=== PATIENT | male | born 1945 | race Hispanic/Latino ===

== ENCOUNTER → 2022-11-11 | Outpatient (CLI) | payer MEDICARE ==
[2022-11-11 16:16] LABS: BASOPHILS % (AUTO) 0.4 % (0.0-5.0); EOSINOPHILS % (AUTO) 1.2 % (0.0-8.0); HEMATOCRIT 36.2 % (42-54); LYMPHOCYTES % (AUTO) 16.7 % (21.0-51.0); MEAN CORPUSCULAR HEMOGLOBIN 28.8 pg (27.0-33.0); MEAN CORPUSCULAR VOLUME 89.8 fL (79-99); MONOCYTES % (AUTO) 7.6 % (3.0-13.0); NEUTROPHILS % (AUTO) 73.8 % (40.0-77.0); PLATELET COUNT (AUTO) 376 K/uL (130-400); RED BLOOD CELL COUNT(AUTO) 4.03 MIL/uL (4.50-6.20); RED CELL DISTRIBUTION WIDTH 14.9 % (11.0-15.5); WHITE BLOOD COUNT (AUTO) 9.2 K/uL (4.8-10.8)
[2022-11-11 16:41] LABS: CREATININE 1.7 mg/dL (0.5-1.5); POTASSIUM 4.6 mmol/L (3.5-5.1); THYROID STIMULATING HORMONE 4.54 uIU/mL (0.36-3.74)
== END | disposition home or self-care (01) ==
LOC: LAB 15:23
PROVIDERS: ATTEND Internal Medicine Cardiovascular Disease
DX: I10 Essential (primary) hypertension (principal); I25.10 Atherosclerotic heart disease of native coronary artery without angina pectoris; E78.5 Hyperlipidemia, unspecified; Z85.46 Personal history of malignant neoplasm of prostate
CPT/HCPCS: 36415; 80048; 84153; 84154; 84443; 85025

== ENCOUNTER → 2023-01-02 | Outpatient (CLI) | payer MEDICARE ==
[2023-01-02 12:04] LABS: CREATININE 1.6 mg/dL (0.5-1.5); MAGNESIUM 2.1 mg/dL (1.80-2.40); POTASSIUM 4.3 mmol/L (3.5-5.1)
== END | disposition home or self-care (01) ==
LOC: LAB 10:23
PROVIDERS: ATTEND Internal Medicine Cardiovascular Disease
DX: I25.10 Atherosclerotic heart disease of native coronary artery without angina pectoris (principal)
CPT/HCPCS: 36415; 80048; 83735

== ENCOUNTER 2024-01-29 06:47 | Observation (INO) | payer OTHER ==
[2024-01-28 13:50] LABS: BASOPHILS # (AUTO) 0.04 K/uL (0.00-0.20); BASOPHILS % (AUTO) 0.5 % (0.0-5.0); EOSINOPHILS # (AUTO) 0.08 K/uL (0.00-0.70); HEMATOCRIT 41.6 % (42-54); IMMATURE GRANULOCYTE ABSOLUTE 0.04 K/uL (0-1); LYMPHOCYTES # (AUTO) 1.4 K/uL (1.0-4.8); LYMPHOCYTES % (AUTO) 17.2 % (21.0-51.0); MEAN CORPUSCULAR HEMOGLOBIN 30.4 pg (27.0-33.0); MEAN CORPUSCULAR HGB CONC 32.9 g/dL (32.0-36.0); MEAN CORPUSCULAR VOLUME 92.4 fL (79-99); MONOCYTES # (AUTO) 0.7 K/uL (0.1-1.0); MONOCYTES % (AUTO) 8.1 % (3.0-13.0); NEUTROPHILS % (AUTO) 72.7 % (40.0-77.0); PLATELET COUNT (AUTO) 339 K/uL (130-400); RED CELL DISTRIBUTION WIDTH 13.2 % (11.0-15.5); WHITE BLOOD COUNT (AUTO) 8.2 K/uL (4.8-10.8)
[2024-01-28 14:00] LABS: CREATININE 1.6 mg/dL (0.5-1.3)
[2024-01-28 14:08] VITALS: BP 129/74; PULSE 70; RESP 17; TEMP 98
[~2024-01-29] VITALS: Ht 180.3 cm; Wt 85.9 kg
[2024-01-29] VITALS (18 sets, daily range): BP systolic 100–151; BP diastolic 53–93; PULSE 69–97; RESP 15–19; TEMP 97.2–97.7
[2024-01-29] MEDS: EPINEPHrine PF 1MG (1:1,000) 1 MG/ML AMP MISC ONE
[~2024-01-29 06:47] MED LIST: ASPI-1197 PO; ATOR10 PO; BICA50TA7 PO; DOCU100T PO; DULO60CA64 PO; EZET10TA48 PO; FERR325T22 PO; GABA-529 PO; ISOS10TA8 PO; MULT1CAP17 PO; RAMI2.5C57 PO; TAMS-1 PO; VITA1CAP85 PO
[2024-01-29] MEDS: LACTATED RINGERS 1000ML 1,000 ML IV ONE (07:40)
[2024-01-29] MEDS: ceFAZolin SODIUM 2 GM VIAL ONE (07:40)
[2024-01-29] MEDS ORDERED: rocuRONium bROMide 10MG/1ML 5ML VL ONE (13:32)
[2024-01-29] MEDS ORDERED: LIDOCAINE PF 100MG/5ML (2%) SYRINGE 5ML ONE (13:32)
[2024-01-29] MEDS ORDERED: proPOFol 10 MG/ML 20ML VIAL IV ONE (13:32)
[2024-01-29] MEDS ORDERED: FENTanyl CITRate PF 50 MCG/1 ML 2ML VIAL ONE ×2 (13:33→20:40)
[2024-01-29] MEDS ORDERED: EPINEPHrine PF 1MG (1:1,000) 1 MG/ML AMP ONE (13:41)
[2024-01-29] MEDS ORDERED: MIDAZOLAM HCL 1 MG/ML 2ML VIAL ONE (17:40)
[2024-01-29] MEDS ORDERED: ONDANSETRON 4MG INJ ONE (17:41)
[2024-01-29] MEDS ORDERED: dexaMETHasone SOD PHOSPHATE 10MG/ML 1ML VIAL ONE (17:53)
[2024-01-29] MEDS ORDERED: ePHEDrine SULFate 50 MG/ML AMPULE ONE (18:05)
[2024-01-29] MEDS ORDERED: PHENYLEPHRINE HCL 10 MG/ML 1ML VIAL IV ONE (18:32)
[2024-01-29] MEDS ORDERED: NEOSTIGMINE METHYLSULFATE 1MG/ML IV ONE (20:38)
[2024-01-29] MEDS ORDERED: GLYCOPYRROLATE 0.2 MG/ML 5 ML VIAL ONE (20:38)
[2024-01-29] MEDS ORDERED: ceFAZolin SODIUM 1 GM VIAL IVPB SCH (21:00)
[2024-01-29] MEDS ORDERED: HYDR-4060 PO (21:11)
[2024-01-29] MEDS ORDERED: IBUP-2077 PO (21:11)
[2024-01-29] MEDS: acetaMINOPHEN 1,000 MG/100 ML VIAL IV ONE (21:14)
[2024-01-29] MEDS: 0.9%NACL 1000ML 1,000 ML IV SCH (22:36)
[2024-01-29] MEDS: ketOROlac 15MG/ML VIAL (15MG/ML) IV PRN (23:25)
[2024-01-30] VITALS (8 sets, daily range): BP systolic 126–150; BP diastolic 62–94; PULSE 69–86; RESP 18; TEMP 97.7–98.7; O2SAT 100
[2024-01-30] MEDS: ceFAZolin SODIUM 2 GM VIAL IVPB SCH (02:15)
[2024-01-30] MEDS ORDERED: ISOSORBIDE MONONITRATE 30 MG PO SCH (09:00)
[2024-01-30] MEDS ORDERED: NON-FORMULARY MEDICATION 1 EACH (Ramipril 2.5 MG) PO SCH (09:00)
[2024-01-30] MEDS: HYDROcodone/APAP 5/325 1 TAB TABLET PO PRN (09:58)
[2024-01-30] MEDS: EZETIMIBE 10 MG TAB PO SCH (09:58)
[2024-01-30] MEDS: atorVAStatin 20 MG TABLET PO SCH (09:59)
[2024-01-30] MEDS: LISINOPRIL 5 MG TABLET PO SCH (09:59)
[2024-01-30] MEDS: polyETHYLene GLYCol 3350 17 GM POWD.PACK PO SCH (09:59)
[2024-01-30] MEDS: GABAPENTIN 300 MG CAPSULE PO SCH (09:59)
[2024-01-30] MEDS: ISOSORBIDE MONO 30MG SR TAB PO SCH (09:59)
[2024-01-30] MEDS: ASPIRIN 81MG CHEW TAB PO SCH (10:00)
[2024-01-30] MEDS: PSYLLIUM SEED 1 EACH PACKET PO SCH (13:14)
[2024-01-30] MEDS ORDERED: NON-FORMULARY MEDICATION 1 EACH (Duloxetine HCl 60 MG) PO SCH (21:00)
[2024-01-30] MEDS ORDERED: tamSULOsin HCL 0.4 MG CAP.ER.24H PO SCH (21:00)
[2024-01-30] MEDS ORDERED: NON-FORMULARY MEDICATION 1 EACH (Docusate Sodium 100 MG) PO SCH (21:00)
[2024-01-30] MEDS ORDERED: doCUSate SODIUM 100 MG CAP PO SCH (21:00)
[2024-01-30] MEDS ORDERED: duloXETine HCL 30 MG CAP PO SCH (21:00)
[2024-01-31] MEDS ORDERED: BisaCODYL 5 MG TABLET.DR PO PRN (21:00)
[2024-01-31] MEDS ORDERED: atorVAStatin 20 MG TABLET PO SCH (21:00)
[2024-02-01] MEDS ORDERED: BisaCODYL 10 MG SUPP.RECT RC PRN (21:00)
== END 2024-01-30 13:28 | disposition home or self-care (01) ==
LOC: DAH 06:47 → DAHIP 06:48 → DAH 20:49 → 4CH 21:45
PROVIDERS: ADMIT Orthopaedic Surgery; ATTEND Orthopaedic Surgery
DX: M19.012 Primary osteoarthritis, left shoulder (principal); M75.122 Complete rotator cuff tear or rupture of left shoulder, not specified as traumatic; M75.42 Impingement syndrome of left shoulder; E11.22 Type 2 diabetes mellitus with diabetic chronic kidney disease; I12.9 Hypertensive chronic kidney disease with stage 1 through stage 4 chronic kidney disease, or unspecified chronic kidney disease; N18.30 Chronic kidney disease, stage 3 unspecified; I25.10 Atherosclerotic heart disease of native coronary artery without angina pectoris; E78.5 Hyperlipidemia, unspecified; Z85.038 Personal history of other malignant neoplasm of large intestine; Z85.46 Personal history of malignant neoplasm of prostate; Z79.899 Other long term (current) drug therapy; Z98.890 Other specified postprocedural states
CPT/HCPCS: 80048; 85025; 36415; 64415; 29820; 23412; 23120; 29826; 96375; 93005; 96365; 96366; G0378 ×16; A4663; J7030; J7120; J3010 ×2; J1100; J3490 ×3; J2001; J0171 ×2; J2250; J2704; J2405; J2710; J1885; J2371; J0690 ×3; A6204; A4930 ×3; A5120; A4215; A4223 ×2; A4222; A4221; A4216